=== PATIENT | female | born 1940 | race American Indian/Alaskan Native ===

== ENCOUNTER → 2016-10-30 | Outpatient (CLI) | payer OTHER ==
--- NOTE | 2016-10-30 14:51 | DIAGNOSTIC IMAGING REPORT ---
RIGHT FINGER(S) MIN 2 VIEWS ROUTINE HISTORY: 76 years-old Female acute injury to the right fourth digit with swelling for approximately 10 days. No reported trauma. COMPARISON: None available TECHNIQUE: 3 views of the right fourth digit FINDINGS: Mild degenerative changes are present within the DIP joint. There is no acute fracture, dislocation or radiopaque foreign body. Soft tissues are within normal limits. IMPRESSION: 1. No acute bony abnormality. 2. Mild changes of the fourth DIP joint. The above report was generated using voice recognition software. It may contain grammatical, syntax or spelling errors. Electronically signed by: Shawn Resendiz M.D. 10/30/2016 2:50 PM Dictated Date/Time: 10/30/2016 2:48 PM
== END | disposition home or self-care (01) ==
LOC: C.RAD 14:09
PROVIDERS: ATTEND Internal Medicine Gastroenterology
DX: S69.91XA Unspecified injury of right wrist, hand and finger(s), initial encounter (principal); X58.XXXA Exposure to other specified factors, initial encounter